=== PATIENT | male | born 2000 | race Hispanic/Latino ===

== ENCOUNTER → 2024-11-27 14:10 | Outpatient (REF) | payer OTHER, SELFPAY ==
[2024-11-28 19:04] LABS: Hepatitis B Surface Antibody Negative
== END ==
LOC: OHS 14:10
PROVIDERS: ATTENDING PHYSICIAN Nurse Practitioner Family
DX: Z23 Encounter for immunization (principal)
CPT/HCPCS: 36415; 86706